=== PATIENT | male | born 1955 | race Caucasian/White ===

== ENCOUNTER 2023-06-13 02:01 | Emergency (ER) | payer MEDICARE, OTHER ==
[2023-06-13 02:23] VITALS: TEMP 97.1; O2SAT 97
--- NOTE | 2023-06-13 03:30 | ERPHSYRPT ---
- History of Present Illness Time Seen by Provider: 06/13/23 02:20 Source: patient Exam Limitations: no limitations Patient Subjective Stated Complaint: pt states he tripped and fell and hurt his rt arm. Triage Nursing Assessment: pt alert and oriented, answers questions approp. pt ambulates into room with steady gait noted. respirations nonlabored. deformity noted to rt forearm. abrasion to rt forearm and rt elbow. radial pulse wnl. cap refill wnl. Physician History: Patient is a 68-year-old male with a history of polymyalgia rheumatica presents to our ED for evaluation status post fall. Patient complains of pain to right wrist. Patient states he awoke at night. His room was dark. Patient states that he tends to stumble due to his polymyalgia rheumatica. Patient is a fall risk because of this condition. Patient states he lost his balance and fell to the floor. No BHT or LOC. No neck pain. Cervical spine cleared clinically. The fall was not associated with any neuro cardiovascular symptomology. No chest pain or shortness of breath. No nausea vomiting or diaphoresis. No numbness tingling or weakness. Patient's wrist pain described as an ache that is localized. No radiation. Pain worse with movement and palpation. Pain improved with rest. Patient voices no other complaints or concerns at this time. Portions of this note were created with voice recognition technology. There may be grammatical, spelling, punctuation or sound alike errors Timing/Duration: today Severity: moderate Modifying Factors: Improves With: movement Associated Symptoms: denies symptoms Allergies/Adverse Reactions: Penicillins Allergy (Unknown, Verified 06/13/23 02:11) Home Medications: Folic Acid 1 mg [Folate 1 mg] 1 mg PO DAILY 06/13/23 [History] Methotrexate Sodium/Pf [Methotrexate 25 mg/ml Vial] 0.6 ml SQ WEEKLY 06/13/23 [History] Hx Tetanus, Diphtheria Vaccination/Date Given: Yes Hx Influenza Vaccination/Date Given: No Hx Pneumococcal Vaccination/Date Given: No Immunizations Up to Date: Yes Travel Risk - International Travel Have you traveled outside of the country in past 3 weeks: No - Coronavirus Screening Are you exhibiting any of the following symptoms?: No Close contact with a COVID-19 positive Pt in past 14-21 Days: No - Vaccine Status Have you recieved a Covid-19 vaccination: Yes It Analyst: Moderna - Vaccination Dates Date of 2cond Vaccination (if applicable): 2020 - Review of Systems Constitutional: No Symptoms, No Fever, No Chills Eyes: No Symptoms Ears, Nose, & Throat: No Symptoms Respiratory: No Symptoms, No Cough, No Dyspnea Cardiac: No Symptoms, No Chest Pain, No Edema, No Syncope Abdominal/Gastrointestinal: No Symptoms, No Abdominal Pain, No Nausea, No Vomiting, No Diarrhea Genitourinary Symptoms: No Symptoms, No Dysuria Musculoskeletal: No Symptoms, No Back Pain, No Neck Pain Skin: No Symptoms, No Rash Neurological: No Symptoms, No Dizziness, No Focal Weakness, No Sensory Changes Psychological: No Symptoms Endocrine: No Symptoms Hematologic/Lymphatic: No Symptoms Immunological/Allergic: No Symptoms All Other Systems: Reviewed and Negative - Past Medical History Other Medical History: polymyalgia rheumatica - Past Surgical History Past Surgical History: Yes Other Surgical History: back surgery, soft tissue lumps removed - Social History Smoking Status: Never smoker Exposure to second hand smoke: No Drug Use: none Patient Lives Alone: No - Nursing Vital Signs Nursing Vital Signs: Initial Vital Signs Temperature 97.1 F 06/13/23 02:12 Pulse Rate 89 06/13/23 02:12 Respiratory Rate 16 06/13/23 02:12 Blood Pressure 168/94 06/13/23 02:12 O2 Sat by Pulse Oximetry 97 06/13/23 02:12 Pain Scale Pain Intensity 5 - Physical Exam General Appearance: no apparent distress, alert Eye Exam: PERRL/EOMI, eyes nml inspection Ears, Nose, Throat Exam: normal ENT inspection, TMs normal, pharynx normal, moist mucous membranes Neck Exam: normal inspection, non-tender, supple, full range of motion Respiratory Exam: normal breath sounds, lungs clear, airway intact, No respiratory distress Cardiovascular Exam: regular rate/rhythm, normal heart sounds, normal peripheral pulses Gastrointestinal/Abdomen Exam: soft, normal bowel sounds, No tenderness, No mass Back Exam: normal inspection, normal range of motion, No CVA tenderness, No vertebral tenderness Extremity Exam: normal inspection, normal range of motion, pelvis stable, other (Swelling left distal forearm and wrist area. Light abrasion to the dorsal aspect of left forearm.) Neurologic Exam: alert, oriented x 3, cooperative, normal mood/affect, nml cerebellar function, nml station & gait, sensation nml, No motor deficits Skin Exam: normal color, warm, dry, No rash Lymphatic Exam: No adenopathy SpO2 Interpretation: normal SpO2: 97 O2 Delivery: Room Air - Course Nursing assessment & vital signs reviewed: Yes - Radiology Exams Elbow X-ray Interpretation: Interpreted by me (No fracture dislocation. Osteopenia observed) Forearm X-ray Interpretation: Interpreted by me (No fracture or dislocation. Swelling distal forearm.) Wrist X-ray Interpretation: Interpreted by me (Swelling dislocation. 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 There is a residual foreign body. Per patient this is a residual K wire from a previous surgery.) Ordered Tests: Active Orders 24 hr Category Date Time Status ELBOW (2 VIEW) Stat Exams 06/13/23 02:24 Taken FOREARM Stat Exams 06/13/23 02:23 Taken WRIST (MIN 3 VIEWS) Stat Exams 06/13/23 02:25 Taken - Progress Progress: improved Progress Note: Patient is a six 68-year-old male presents to our ED for evaluation of pain to his right wrist status post fall. Patient has a known unsteady gait and a fall risk due to polymyalgia rheumatica. Patient awoke and got out of bed when he lost his balance and fell. Patient has swelling to the right wrist with a dorsal abrasion. Abrasion is very superficial. Involved extremities neurovascular intact distally. Compartments are soft cap refill less than 2 seconds. X-ray of the elbow forearm and right wrist are negative for fracture dislocation. However the right wrist x-ray reveals a foreign body which patient states is residual from a previous surgery. 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 However this is unclear. Patient will be referred to orthopedics for further evaluation and treatment. Patient involved extremity placed in a splint. Patient comfortable. Patient declined pain medication. Patient states that the swelling goes down spontaneously the discomfort decreases. Portions of this note were created with voice recognition technology. There may be grammatical, spelling, punctuation or sound alike errors Complexity problem addressed is low acute uncomplicated No critical care time Complex of data reviewed and analyzed is moderate. Dr. Tapia independently reviewed the x-rays of the elbow forearm and wrist. Risk of complication and a risk of morbidity/mortality of patient management is low. Patient placed in a wrist splint. Patient discharged home. Vital stable. Time spent to discharge patient is approximately 10 minutes. Plan of care established for shared decision making. No social determinants of health present impede follow-up. Patient referred to the orthopedic clinic for follow-up. Portions of this note were created with voice recognition technology. There may be grammatical, spelling, punctuation or sound alike errors 06/13/23 03:35 06/13/23 03:39 Counseled pt/family regarding: diagnosis, need for follow-up, rad results - Departure Departure Disposition: Home Clinical Impression: Fall, Wrist sprain Condition: Stable Critical Care Time: No Referrals: DIANNE PEREA MD [Primary Care Provider] - Follow up/PCP as directed Additional Instructions: Discharge/Care Plan FARRUKH THAKKAR was seen on 06/13/23 in the Emergency Room. The patient was counseled regarding Diagnosis,Lab results, Imaging studies, need for follow up and when to return to the Emergency Room. Prescriptions given: Discharge Note I have spoken with the patient and/or caregivers. I have explained the patient's condition, diagnosis and treatment plan based on the information available to me at this time. I have answered the patient's and/or caregiver's questions and addressed any concerns. The patient and/or caregivers have as good understanding of the patient's diagnosis, condition and treatment plan as can be expected at this point. The vital signs have been stable. The patient's condition is stable and appropriate for discharge from the emergency department. The patient will pursue further outpatient evaluation with the primary care physician or other designated or consulting physician as outlined in the discharge instructions. The patient and/or caregivers are agreeable to this plan of care and follow-up instructions have been explained in detail. The patient and/or caregivers have received these instruction. The patient/and or caregivers are aware that any significant change in condition or worsening of symptoms should prompt an immediate return to this or the closest emergency department or call 911. Outpatient Orders: Ortho Referral Time Frame: 1 Day, Facility: [facility], Location: ORTHO CLINIC
[2023-06-13 03:38] VITALS: BP 139/92; PULSE 88; RESP 18
--- NOTE | 2023-06-13 08:49 | XRAY ---
Indication: Pain following fall. Comparison: None 2 view right elbow demonstrates small spurring posterior olecranon process and minimal vascular calcifications. No other bony, articular, or soft tissue abnormalities.
--- NOTE | 2023-06-13 08:51 | XRAY ---
Indication: Pain following fall. Comparison: None 2 view right forearm demonstrates small spurring posterior olecranon process, distal posterior soft tissue swelling, and a 1.8 cm foreign body wire projecting over base of hand. No other bony, articular, or soft tissue abnormalities.
--- NOTE | 2023-06-13 08:53 | XRAY ---
Indication: Pain following fall. Comparison: None 3 view right wrist demonstrates moderate 1st metacarpal multangular degenerative changes and a 2.8 cm long foreign body wire projecting base 2nd/3rd metacarpals anteriorly. No other bony, articular, or soft tissue abnormalities.
== END 2023-06-13 03:56 | disposition home or self-care (01) ==
LOC: ED 02:01
DX: S63.501A Unspecified sprain of right wrist, initial encounter (principal); W18.30XA Fall on same level, unspecified, initial encounter; Y92.003 Bedroom of unspecified non-institutional (private) residence as the place of occurrence of the external cause; M35.3 Polymyalgia rheumatica; Z79.899 Other long term (current) drug therapy
CPT/HCPCS: 73070; 73090; 73110; 99283; L3908